=== PATIENT | male | born 1940 | race Caucasian/White ===

== ENCOUNTER 2017-03-21 14:13 | Inpatient (IN) | payer MEDICARE ==
[2017-03-21] MEDS ORDERED: Acetaminophen 325 MG TAB PO PRN (15:41)
[2017-03-21] MEDS ORDERED: HYDROcodone/Acetaminophen 10/325 mg Tablet PO PRN ×2 (15:41)
[2017-03-21] MEDS ORDERED: Dextrose 50% Abboject 50 ML SYRINGE IVP PRN (18:01)
[2017-03-21] MEDS ORDERED: Dextrose 5% in Water 1,000 ML IV PRN (18:01)
[2017-03-21] MEDS: Tamsulosin HCl 0.4 MG CAP PO SCH (20:38)
[2017-03-21] MEDS: Pravastatin Sodium 20 MG TAB PO SCH (20:38)
[2017-03-21] MEDS: HumaLOG 300 UNITS/3 ML VIAL SC PRN (20:39)
[2017-03-21] MEDS: Docusate 100 MG CAP PO SCH (20:39)
[2017-03-22] MEDS: Enoxaparin Sodium 40 MG/0.4 ML SYRINGE SC SCH (05:23)
--- NOTE | 2017-03-22 06:35 | HP ---
DATE OF ADMISSION: 03/21/2017 ADMITTING PHYSICIAN: Irma Quinn MD PRIMARY CARE PHYSICIAN: Sven Pickett MD HISTORY OF PRESENT ILLNESS: Mr. Woodson is a 77-year-old male with a past medical history of abdominal hernia repair, sepsis, status post colectomy, and osteoarthritis. The patient was transferred from [facility] in [place] for longterm care and inpatient physical therapy, status post total right knee arthroplasty on 03/19/2017. The patient was admitted and the procedure was done by Dr. Jamie Ruby at [facility] in [place]. Patient's surgery was without complication. The patient immediately started inpatient physical therapy during his hospitalization with no postop complication and was transferred today for skilled rehabilitation. Prior to his admission, the patient was living at his home. He is a and does not have anybody to take care of him during this postop period. Today, patient complained of pain to the knee, he stated that the hydrocodoneand ultram given in [place] gave him some nausea, so he does not want that medicine any longer. He complains of a left big toe blister that opened up and he complained of calluses to the left lower extremity. The patient denies any abdominal pain, diarrhea, or constipation. He states he has had 2 bowel movements since operation. He is passing gas. He is tolerating a diet and his only concern for pain and swelling to the right lower extremity. PAST MEDICAL HISTORY: Hypertension, new onset diabetes, hyperlipidemia. PAST SURGICAL HISTORY: Right total knee arthroplasty on 03/19/2017, EGD with dilation on 02/12/2017, history of appendectomy, history of abdominal hernia repair, history of laparoscopy assisted colectomy. SOCIAL HISTORY: The patient is a . His is from about 4 years now. He does have children and family lives nearby. ALLERGIES: Patient is allergic to AZITHROMYCIN. REVIEW OF SYSTEMS: Positive for right knee pain. Positive for nausea, otherwise denies headache, chest pain, blurry vision, sore throat, cough, abdominal pain, shortness of breath, diarrhea, bloody stools, palpitations, or dizziness. PHYSICAL EXAMINATION: VITAL SIGNS: Temperature 99.6, pulse 96, respirations 19, O2 saturation 93% on room air, blood pressure 163/69. GENERAL: Patient is alert, awake, oriented x3. He is very pleasant, in no apparent distress. HEENT: Normocephalic, atraumatic. Pupils are round and reactive to light. Extraocular muscle movement is intact. Conjunctivae noninjected. Sclerae is nonicteric. Oropharynx is moist without any erythema of exudates. NECK: Supple without lymphadenopathy. No carotid bruits. CARDIOVASCULAR: S1 and S2 normal home. No murmurs. LUNGS: Respirations clear to auscultation bilaterally in all lung barnett. No wheezing, no rales, no rhonchi. ABDOMEN: Mildly distended, soft, nontender, bowel sounds present. No hepatosplenomegaly noted. MUSCULOSKELETAL: Strength in upper extremities bilateral, 5/5. Right lower extremity has a dressing over the incision is clean, dry, and intact, +2 pulses to his right lower extremity with edema and some blistering to the lateral side of the incision. Left lower extremity is currently negative for any swelling. Left big toe does have a callus with an opening, but no drainage and nontender. NEUROLOGICAL: The patient is alert, awake, oriented x3. No focal deficits. ASSESSMENT AND PLAN: This is a 77-year-old male with history of hypertension and new onset diabetes, status post right total knee arthroplasty, requiring longterm for inpatient physical therapy rehabilitation. 1. Right total knee arthroplasty. PT, OT has been ordered upon admission for evaluation and treatment. Patient continued therapy and he was able to perform ADLs for discharge home. We will give Lovenox daily for deep venous thrombosis prophylaxis. We will give Protonix for gastrointestinal prophylaxis. We will continue with incentive spirometry at bedside. Patient to follow up with Dr. Jamie Ruby, Orthopedic doctor in 2 weeks. 2. Diabetes. We will start patient on mild sliding scale. We will continue metformin and glipizide ordered in the hospital. We will check Accu-Cheks before meals and at bedtime. 3. Hypertension. The patient will be started on Lisinopril 10 mg daily. 4. Pain management. We will start patient on Tylenol No. 3 as hydrocodone/ ultram causing some nausea for now. We would adjust pain medicine accordingly. DISPOSITION: Plan is to discharge the patient home with possible home health in about 4 to 6 weeks. [facility]
[2017-03-22] MEDS: Lisinopril 10 MG TAB PO SCH (08:44)
[2017-03-22] MEDS: HumaLOG 300 UNITS/3 ML VIAL SC PRN ×4 (08:46→20:52)
[2017-03-22] MEDS: Docusate 100 MG CAP PO SCH ×2 (08:46→20:52)
[2017-03-22] MEDS: Acetaminophen/Codeine 30-300mg Tablet PO PRN (17:38)
[2017-03-22] MEDS: Tamsulosin HCl 0.4 MG CAP PO SCH (20:51)
[2017-03-22] MEDS: Pravastatin Sodium 20 MG TAB PO SCH (20:51)
[2017-03-23] MEDS: Enoxaparin Sodium 40 MG/0.4 ML SYRINGE SC SCH (05:50)
[2017-03-23] MEDS: Docusate 100 MG CAP PO SCH ×2 (08:57→21:18)
[2017-03-23] MEDS: Lisinopril 10 MG TAB PO SCH (08:58)
[2017-03-23] MEDS: HumaLOG 300 UNITS/3 ML VIAL SC PRN ×2 (09:12→13:57)
[2017-03-23] MEDS: Acetaminophen/Codeine 30-300mg Tablet PO PRN (10:21)
[2017-03-23] MEDS: Ondansetron ODT 4 MG TAB PO PRN (17:10)
[2017-03-23] MEDS: Tamsulosin HCl 0.4 MG CAP PO SCH (21:02)
[2017-03-23] MEDS: Pravastatin Sodium 20 MG TAB PO SCH (21:03)
[2017-03-24] MEDS: Enoxaparin Sodium 40 MG/0.4 ML SYRINGE SC SCH (05:17)
[2017-03-24] MEDS: Acetaminophen/Codeine 30-300mg Tablet PO PRN ×2 (08:46→20:59)
[2017-03-24] MEDS: Docusate 100 MG CAP PO SCH ×2 (08:48→20:49)
[2017-03-24] MEDS: Lisinopril 10 MG TAB PO SCH (08:49)
[2017-03-24] MEDS: HumaLOG 300 UNITS/3 ML VIAL SC PRN ×3 (08:50→17:10)
[2017-03-24] MEDS: Tamsulosin HCl 0.4 MG CAP PO SCH (20:50)
[2017-03-24] MEDS: Pravastatin Sodium 20 MG TAB PO SCH (20:50)
[2017-03-25] MEDS: Enoxaparin Sodium 40 MG/0.4 ML SYRINGE SC SCH (06:17)
[2017-03-25] MEDS: Acetaminophen/Codeine 30-300mg Tablet PO PRN ×2 (06:46→11:57)
[2017-03-25] MEDS: HumaLOG 300 UNITS/3 ML VIAL SC PRN ×3 (08:28→17:49)
[2017-03-25] MEDS: Lisinopril 10 MG TAB PO SCH (09:21)
[2017-03-25] MEDS: Docusate 100 MG CAP PO SCH ×3 (09:21→21:02)
[2017-03-25] MEDS: Tamsulosin HCl 0.4 MG CAP PO SCH (20:57)
[2017-03-25] MEDS: Pravastatin Sodium 20 MG TAB PO SCH (20:57)
[2017-03-26] MEDS ORDERED: Simethicone Chewable 80 MG TAB PO PRN (07:33)
[2017-03-26] MEDS: Ondansetron ODT 4 MG TAB PO PRN (07:42)
[2017-03-26] MEDS: HumaLOG 300 UNITS/3 ML VIAL SC PRN ×4 (08:35→21:03)
[2017-03-26] MEDS: Lisinopril 10 MG TAB PO SCH (09:11)
[2017-03-26] MEDS: Enoxaparin Sodium 40 MG/0.4 ML SYRINGE SC SCH (09:12)
[2017-03-26] MEDS: Docusate 100 MG CAP PO SCH ×2 (09:13→21:02)
[2017-03-26] MEDS: Pravastatin Sodium 20 MG TAB PO SCH (21:03)
[2017-03-26] MEDS: Tamsulosin HCl 0.4 MG CAP PO SCH (21:03)
[2017-03-27] MEDS: Lisinopril 10 MG TAB PO SCH (08:41)
[2017-03-27] MEDS: Docusate 100 MG CAP PO SCH ×2 (08:41→21:07)
[2017-03-27] MEDS: Enoxaparin Sodium 40 MG/0.4 ML SYRINGE SC SCH (08:45)
[2017-03-27] MEDS: HumaLOG 300 UNITS/3 ML VIAL SC PRN ×2 (13:13→21:12)
[2017-03-27] MEDS: Tamsulosin HCl 0.4 MG CAP PO SCH (21:07)
[2017-03-27] MEDS: Pravastatin Sodium 20 MG TAB PO SCH (21:09)
[2017-03-28] MEDS: Enoxaparin Sodium 40 MG/0.4 ML SYRINGE SC SCH (08:57)
[2017-03-28] MEDS: Lisinopril 10 MG TAB PO SCH (08:58)
[2017-03-28] MEDS: Docusate 100 MG CAP PO SCH ×2 (08:58→20:06)
[2017-03-28] MEDS ORDERED: Sodium Chloride Irrig Solution 250 ML BOT ONE (10:47)
[2017-03-28] MEDS: Tamsulosin HCl 0.4 MG CAP PO SCH (20:05)
[2017-03-28] MEDS: Pravastatin Sodium 20 MG TAB PO SCH (20:05)
[2017-03-29] MEDS: Docusate 100 MG CAP PO SCH ×2 (08:13→20:45)
[2017-03-29] MEDS: Enoxaparin Sodium 40 MG/0.4 ML SYRINGE SC SCH (08:14)
[2017-03-29] MEDS: Lisinopril 10 MG TAB PO SCH (08:14)
[2017-03-29] MEDS: Pravastatin Sodium 20 MG TAB PO SCH (20:43)
[2017-03-29] MEDS: Tamsulosin HCl 0.4 MG CAP PO SCH (20:44)
[2017-03-29] MEDS: HumaLOG 300 UNITS/3 ML VIAL SC PRN (20:45)
[2017-03-30] MEDS: Lisinopril 10 MG TAB PO SCH (08:29)
[2017-03-30] MEDS: Docusate 100 MG CAP PO SCH (08:30)
[2017-03-30] MEDS: Enoxaparin Sodium 40 MG/0.4 ML SYRINGE SC SCH (08:31)
[2017-03-30] MEDS ORDERED: Docusate 100 MG CAP PO PRN (15:21)
[2017-03-30] MEDS: HumaLOG 300 UNITS/3 ML VIAL SC PRN ×2 (17:35→20:05)
[2017-03-30] MEDS: Pravastatin Sodium 20 MG TAB PO SCH (20:05)
[2017-03-30] MEDS: Tamsulosin HCl 0.4 MG CAP PO SCH (20:05)
[2017-03-30] MEDS: Cyclobenzaprine 10 MG TAB PO PRN (20:16)
[2017-03-31] MEDS: Enoxaparin Sodium 40 MG/0.4 ML SYRINGE SC SCH (09:25)
[2017-03-31] MEDS: Lisinopril 10 MG TAB PO SCH (09:25)
[2017-03-31] MEDS: Cyclobenzaprine 10 MG TAB PO PRN ×2 (09:36→20:31)
[2017-03-31] MEDS: HumaLOG 300 UNITS/3 ML VIAL SC PRN (17:22)
[2017-03-31] MEDS: Pravastatin Sodium 20 MG TAB PO SCH (20:26)
[2017-03-31] MEDS: Tamsulosin HCl 0.4 MG CAP PO SCH (20:26)
[2017-04-01] MEDS: HumaLOG 300 UNITS/3 ML VIAL SC PRN (08:04)
[2017-04-01] MEDS: Lisinopril 10 MG TAB PO SCH (08:05)
[2017-04-01] MEDS: Enoxaparin Sodium 40 MG/0.4 ML SYRINGE SC SCH (08:06)
[2017-04-01] MEDS: Cyclobenzaprine 10 MG TAB PO PRN ×2 (11:04→20:21)
[2017-04-01] MEDS: Tamsulosin HCl 0.4 MG CAP PO SCH (20:13)
[2017-04-01] MEDS: Pravastatin Sodium 20 MG TAB PO SCH (20:14)
[2017-04-02 02:24] VITALS: BMI 33.9
[2017-04-02] MEDS: Aspirin 325 mg Enteric Coated Tablet PO SCH (09:00)
[2017-04-02] MEDS: Lisinopril 10 MG TAB PO SCH (09:01)
[2017-04-02] MEDS: Tamsulosin HCl 0.4 MG CAP PO SCH (20:20)
[2017-04-02] MEDS: Pravastatin Sodium 20 MG TAB PO SCH (20:20)
[2017-04-03] MEDS: Lisinopril 10 MG TAB PO SCH (08:07)
[2017-04-03] MEDS: Aspirin 325 mg Enteric Coated Tablet PO SCH (08:08)
[2017-04-03] MEDS: Pravastatin Sodium 20 MG TAB PO SCH (20:04)
[2017-04-03] MEDS: Tamsulosin HCl 0.4 MG CAP PO SCH (20:04)
[2017-04-04] MEDS: Lisinopril 10 MG TAB PO SCH (08:41)
[2017-04-04] MEDS: Aspirin 325 mg Enteric Coated Tablet PO SCH (08:42)
[2017-04-04] MEDS: Pravastatin Sodium 20 MG TAB PO SCH (21:00)
[2017-04-04] MEDS: Tamsulosin HCl 0.4 MG CAP PO SCH (21:00)
[2017-04-05] MEDS: Aspirin 325 mg Enteric Coated Tablet PO SCH (08:48)
[2017-04-05] MEDS: Lisinopril 10 MG TAB PO SCH (08:48)
[2017-04-05] MEDS: Pravastatin Sodium 20 MG TAB PO SCH (20:13)
[2017-04-05] MEDS: Tamsulosin HCl 0.4 MG CAP PO SCH (20:14)
[2017-04-06] MEDS: Lisinopril 10 MG TAB PO SCH (08:58)
[2017-04-06] MEDS: Aspirin 325 mg Enteric Coated Tablet PO SCH (08:58)
[2017-04-06] MEDS: Pravastatin Sodium 20 MG TAB PO SCH (20:35)
[2017-04-06] MEDS: Tamsulosin HCl 0.4 MG CAP PO SCH (20:35)
[2017-04-07] MEDS: Lisinopril 10 MG TAB PO SCH (08:44)
[2017-04-07] MEDS: Aspirin 325 mg Enteric Coated Tablet PO SCH (08:44)
[2017-04-07] MEDS: Pravastatin Sodium 20 MG TAB PO SCH (20:07)
[2017-04-07] MEDS: Tamsulosin HCl 0.4 MG CAP PO SCH (20:07)
[2017-04-08] MEDS: Lisinopril 10 MG TAB PO SCH (08:29)
[2017-04-08] MEDS: Aspirin 325 mg Enteric Coated Tablet PO SCH (08:29)
[2017-04-08 08:30] VITALS: BP 127/59; TEMP 98.9
--- NOTE | 2017-04-08 23:54 | DIS ---
DATE OF ADMISSION: 03/21/2017 DATE OF DISCHARGE: 04/08/2017 ADMITTING AND DISCHARGING PHYSICIAN: Irma Quinn MD FINAL DIAGNOSES: 1. Physical debility. 2. Status post right total knee arthroplasty. 3. Diabetes type 2. 4. Right leg edema. 5. Right ankle cramps. 6. Hypertension. 7. Esophageal spasms. DISCHARGE MEDICATIONS: Flexeril 5 mg t.i.d. p.r.n. for muscle spasm, glipizide 10 mg b.i.d., lisinopril 10 mg daily, metformin 1000 mg b.i.d., pravastatin 40 mg at bedtime, Flomax 0.4 mg every day and aspirin 81 mg daily. DISCHARGE INSTRUCTIONS: Follow up with PCP within 1 week. Follow up with orthopedic surgeon within 1 week. [facility] to start physical therapy, occupational therapy and nursing care. DIET: Diabetic and heart diet. ACTIVITIES: Ambulatory as needed with a walker at all times, fall precautions. BRIEF HOSPITAL COURSE: Mr. Woodson is a 77-year-old male with a medical history of abdominal hernia repair, sepsis, status post colectomy and osteoarthritis. The patient underwent a total right knee arthroplasty on [address] Ruby. Patient's procedure was without complication and he was discharged to [facility] for skilled rehabilitation as he lives by himself. During hospitalization, the patient's right leg was swollen and erythematous and this significantly improved. The patient was participating in physical therapy and did not have any complications. During hospitalization, the patient did not use pain medications and he complains of some right ankle cramps and spasms for which he was given muscle relaxants and this was used strictly as needed. A day prior to discharge, the patient's incision site had some serosanguineous discharge, but that subsequently improved with no issues. The patient improved significantly and was able to walk about 350 feet with a rolling walker on day of discharge. The patient was discharged home in a stable condition, [facility] to resume physical therapy and occupational therapy once at home. The patient is a FULL CODE. DISCHARGE VITAL SIGNS: Temperature 98.9, pulse 95, respirations 18, O2 sat 95% , blood pressure 127/59. MTDD
== END 2017-04-08 10:14 | disposition home health service (06) | DRG 561 ==
LOC: MADMS 14:22 → UNDOADMIN 14:22 → MADMS 14:28
PROVIDERS: ADMIT Family Medicine; ATTEND Family Medicine
DX: Z47.1 Aftercare following joint replacement surgery (principal); E11.9 Type 2 diabetes mellitus without complications; I10 Essential (primary) hypertension; K22.4 Dyskinesia of esophagus; K21.9 Gastro-esophageal reflux disease without esophagitis; E78.5 Hyperlipidemia, unspecified; Z90.49 Acquired absence of other specified parts of digestive tract; Z88.1 Allergy status to other antibiotic agents; Z96.651 Presence of right artificial knee joint
CPT/HCPCS: 36416; G8978-GP-CL; G8979-GP-CI; J1650; Q0162

== ENCOUNTER 2021-06-28 01:28 | Emergency (ER) | payer MEDICARE ==
[2021-06-28] MEDS ORDERED: Ondansetron PF 4 MG/2 ML Vial ONE (01:40)
[2021-06-28 01:55] LABS: #Basophils 0.1 thou/uL (0.0-0.2); #Lymphocytes 0.7 thou/uL (1.20-3.40); #Monocytes 0.4 thou/uL (0.11-0.59); #Neutrophils 10.2 thou/uL (1.40-6.50); %Basophils 0.7 % (0.0-1.0); %Eosinophils 0.3 % (0.0-10.0); %Monocytes 3.4 % (0.0-10.0); %Neutrophils 89.6 % (42.0-75.0); Hemoglobin 14.7 g/dL (14.0-18.0); Mean Corpuscular HGB CONC 31.6 g/dL (32.0-36.0); Mean Corpuscular Hemoglobin 27.6 pg (27.0-31.0); Mean Corpuscular Volume 87.3 fL (78.0-98.0); Mean Platelet Volume 6.5 fL (7.4-10.4); Platelet Count 226 thou/uL (130-400); RBC Distribution Width 13.5 % (11.5-14.5); Red Blood Cell (RBC) Count 5.32 mill/uL (4.70-6.10); White Blood Cell (WBC) Count 11.4 thou/uL (4.8-10.8)
[2021-06-28 02:17] LABS: ALT (SGPT) 28 U/L (8-55); AST (SGOT) 25 U/L (5-34); Albumin 3.8 g/dL (3.4-4.8); Alkaline Phosphatase 72 U/L (40-110); Anion Gap 17 mmol/L (10-20); BUN (Urea Nitrogen) 11 mg/dL (8.4-25.7); Bilirubin, Total 0.8 mg/dL (0.2-1.2); Calc. Creatinine Clearance 0 mL/min (70-130); Chloride 99 mmol/L (98-107); Globulin 3.3 g/dL (2.4-3.5); Glucose 322 mg/dL (83-110); Lipase 39 U/L (8-78); Magnesium 1.3 mg/dL (1.6-2.6); Potassium 3.7 mmol/L (3.5-5.1); Protein, Total 7.1 g/dL (5.8-8.1); Sodium 133 mmol/L (136-145)
[2021-06-28 02:26] LABS: Carbon Dioxide 21 mmol/L (23-31)
[2021-06-28] MEDS ORDERED: Metoprolol Tartrate 5 MG/5 ML VIAL ONE (02:34)
[2021-06-28] MEDS ORDERED: Magnesium 2 GM/50 ML BAG (IN WATER) ONE (02:34)
[2021-06-28 03:06] LABS: Base Excess-Venous -1.7 mmol/L (-2.0 to 3.0); Bicarbonate (HCO3v) 22.4 mmol/L (22.0-28.0); CO2 Tension (PvCO2) 35.4 mmHg (42.0-51.0); Calcium, Ionized 1.06 mmol/L (1.15-1.33); Chloride 99 mmol/L (98-107); Hemoglobin - Calc 14.3 g/dL (14.0-18.0); Potassium 3.8 mmol/L (3.5-5.1); Sodium 135 mmol/L (138-145); T. Carbon Dioxide 23.5 mmol/L (22.0-28.0); vO2 Saturation-calc 91.3 % (60.0-85.0)
== END 2021-06-28 04:24 | disposition home or self-care (01) ==
LOC: MADERS 01:28
DX: R11.2 Nausea with vomiting, unspecified (principal); R19.7 Diarrhea, unspecified; I48.91 Unspecified atrial fibrillation; E83.42 Hypomagnesemia; E78.5 Hyperlipidemia, unspecified; E11.9 Type 2 diabetes mellitus without complications; Z87.891 Personal history of nicotine dependence; Z79.84 Long term (current) use of oral hypoglycemic drugs
CPT/HCPCS: 71045; 80053; 82330; 82803; 83690; 83735; 83880; 84484; 85025; 93005; 96365; 96375; J2405; J3475